=== PATIENT | male | born 1960 | race Caucasian/White ===

== ENCOUNTER → 2016-11-22 | Outpatient (CLI) | payer BC ==
[~2016-11-22] MED LIST: CLIN-78 PO
[2016-11-22 11:41] VITALS: BP 126/68
--- NOTE | 2016-11-22 11:41 | Urgent Care T Sheet Gen (E) ---
Intake General Temperature (Fahrenheit): 97.1 Pulse: 97 Blood Pressure Systolic: 126 Blood Pressure Diastolic: 68 Respirations: 18 SPO2: 100 Chief Complaint: UC Skin Condition Description of Symptoms He comes in to have a lipoma checked on his back. Its been there for years but in last few days its red and sore- His tried to drain it and no help. no high fevers, no vomiting, no other issues. Hes had other lipomas removed before. Source: Patient History of Present Illness Onset & Duration: Days Timing: Still present Severity: Mild Recent Trauma: No Allergies: Coded Allergies: No Known Drug Allergies (Unverified , 11/22/16) Respiratory Constitutional Symptoms: No syptoms reported EENTM: No symptoms reported Respiratory: No symptoms reported Cardiovascular: No symptoms reported Skin: Other (infectd lipoma on his back) All Other Systems Reviewed Remaining Systems: All other systems reviewed with negative findings Past Angbpnb-Tpahyt-Aoqril Hx Patient's Social History Alcohol Use: Denies Use Recreational Drug Use: Denies Use Surgeries/Hospitalizations Hospitalization/Surgery Hx: Lipomas Physical Exam Physical Exam General Appearance: WD/WN No apparent distress Eyes, Ears, Nose, Throat Ex: PERRL/EOMI Respiratory Exam: Lungs clear Normal breath sounds No respiratory distress Cardiovascular Exam: Regular rate, rhythm No murmur Back Exam: Other (2x2 inch lipoma noted mid back in the middle, right side of it red and tender fluctuant, no drainage but could easily be drained, no necrosis) Departure Urgent Care Impression Chief Complaint: UC Skin Condition Impression: Primary Impression: Abscess of skin or subcutaneous tissue Qualified Code: L02.212 - Cutaneous abscess of back [any part, except buttock] Departure Disposition: 01 HOME OR SELF-CARE Condition: Stable Referrals: KURTIS WU (PCP) Additional Instructions: Long talk with him, likely needs drained and or removed but he wants to wait- he declines I&D today, explained it really needs to be excised soon. Discussed Dr Guallpa seeing him- his neighbor- wants to try med first ( Dr Jamison is information clerk brokerage today) advised if worse go to the ED Tylenol for pain or fever Warm compresses prn if area drains that's good just monitor it. He will decide whether to call Dr Guallpa on Thursday He agrees to plan of care. Scripts Clindamycin HCl 150 Mg Capsule2 Cap PO Q8H Infection #60 CAP Ref 0 2 caps po Q8 hours x 10days with food Prov:ASHOK SCANLON APRN () 11/22/16 End of report . ASHOK SCANLON APRN () Nov 22, 2016 11:41
== END ==
LOC: MHUC 11:13
PROVIDERS: ATTEND Nurse Practitioner
DX: L02.212 Cutaneous abscess of back [any part, except buttock and flank] (principal)
CPT/HCPCS: 99213